=== PATIENT | male | born 1930 | race Caucasian/White ===

== ENCOUNTER → 2017-06-20 | Outpatient (CLI) | payer MEDICARE, OTHER ==
[~2017-06-20] MED LIST: FINASTERIDE5 MG PO; IOPAMIDOL 370 MG/ML 200 ML INFUS..BTL INJ ONE; SODIUM CHLORIDE 0.9% 50ML 50 ML ONE
[2017-06-20 11:05] LABS: CREATININE, SERUM 1.16 mg/dL (0.72-1.25)
--- NOTE | 2017-06-20 14:03 | Diagnostic Imaging Report ---
PROCEDURE:CT ABDOMEN AND PELVIS WITH CONTRAST COMPARISON:No relevant priors INDICATIONS:PROSTATE CANCER TECHNIQUE: Multidetector CT scanning of the abdomen and pelvis was performed after the administration of 100 cc of nonionic contrast. Coronal and sagittal reformations were obtained. Routine protocol performed. FINDINGS: Lung bases: Moderate-sized hiatal hernia. There is chronic atelectasis/scar in the lingula and to a lesser extent in the left lower lobe. Punctate calcified granulomata are present the lung bases. The heart is normal in size without calcifications. Liver: A low attenuating mass measures 1.4 x 1.2 cm in segment 4. A subtle low attenuating mass in segment 7/6 measures 1.7 x 1.3 cm. Biliary: The gallbladder is present and normal in appearance. No biliary ductal dilatation Spleen: Normal size and attenuation without mass Pancreas: Diffuse fatty atrophy without mass or ductal dilatation. Adrenal Glands: Thickening of the apex of the right adrenal gland measures 1.6 x 1.7 cm in the coronal plane. There is mild thickening of the apex of the left adrenal gland. Kidneys: Symmetric enhancement. No enhancing mass. Cyst in the lower pole of the left kidney measures 2.7 x 2.8 cm. No hydronephrosis. Gastrointestinal: Small bowel is normal in diameter and wall thickness. Mild to moderate burden of stool throughout the large bowel. A few diverticula are present. The cecum is located midline in the pelvis. The appendix is nonvisualized and may be absent or collapsed. Vasculature: The aorta is normal in diameter. 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 There is diffuse atherosclerotic plaque particularly at the origin of the left common iliac artery. Peritoneum/Retroperitoneum: No free fluid or fluid collection. Lymph nodes: No enlarged mesenteric, pelvic, or inguinal lymph nodes. Bladder: Under distended but otherwise normal.. Reproductive organs: The prostate gland is absent as are the seminal vesicles. No mass in the operative bed. Penile prosthesis reservoirs are in the lower anterior abdomen. Musculoskeletal: Diffuse sclerotic metastases. There is grade 1 retrolisthesis of L2 on L3 without pars defect. Flowing anterior osteophytes are consistent with DISH. No compression deformities or pathologic fractures. Soft tissues: Unremarkable. CONCLUSION: 1. Status post radical prostatectomy. Widespread osseous metastases. 2. Low attenuating hepatic lesions could represent metastases. It should be confirmed with CT or MRI dedicated to the liver. No lymphadenopathy to suggest metastasis. 3. Saccular aneurysm of the infrarenal aorta as described above. Diffuse atherosclerosis and mild 4. Stenosis of the left common iliac artery. 5. Moderate size hiatal hernia. 6. Nonspecific thickening of the right adrenal gland. Underlying metastases cannot be excluded. Dictated by: Mirza Hall M.D. on 06/20/2017 at 14:04 Electronically approved by: Mirza Hall M.D. on 06/20/2017 at 14:04
--- NOTE | 2017-06-20 23:01 | Diagnostic Imaging Report ---
Bone Scan, delayed phase INDICATION: Prostate cancer; rising PSA; restaging COMPARISON: Most recent prior bone scan of 08/12/2015 REPORT: Approximately 2.5 hours following intravenous administration of 29 mCi of Tc-99m MDP, delayed total body images in the anterior and posterior projections and selected spot images were obtained. Compared to the prior bone scan of 08/12/2015, there has been interval increased in the number of foci of increased tracer activity in the thoracolumbar spine, in ribs anteriorly and posteriorly, in the sternal body, in the bilateral scapulae and throughout the pelvis. Foci of increased tracer activity in the right humeral shaft are more apparent and a new focus of increased tracer activity is seen in the left intertrochanteric femur. Foci of increased tracer in the right femoral shaft show interval resolution. No abnormal accumulation of tracer is seen in the soft tissues or urinary tract. IMPRESSION: Progressive widespread metastatic bone disease in the spine, thorax, pelvis, right humeral shaft and proximal left femur when compared to the most recent prior bone scan of 08/12/2015. Metastatic foci seen in the right femoral shaft show interval resolution. Signed by: Dr. Renetta Kelly M.D. on 06/20/2017 10:58 PM
== END ==
LOC: NM 09:38
PROVIDERS: ATTEND Radiology Radiation Oncology
DX: C79.51 Secondary malignant neoplasm of bone (principal); R97.20 Elevated prostate specific antigen [PSA]
CPT/HCPCS: 36415; 74177; 78306; 82565; 84520; A9503; Q9967

== ENCOUNTER 2018-05-02 14:44 | Inpatient (IN) | payer MEDICARE, OTHER ==
[~2018-05-02] VITALS: Ht 172.7 cm; Wt 73.9 kg
[~2018-05-02 14:44] MED LIST changes: -IOPAMIDOL 370 MG/ML 200 ML INFUS..BTL INJ ONE; -SODIUM CHLORIDE 0.9% 50ML 50 ML ONE
--- OUTSIDE RECORDS SUMMARY | 2018-05-02 14:47 | XMS REPORT ---
Author Author [facility] Address Unknown Phone Unavailable Care Team Providers Care Vice President Compliance Name Role Phone Chapito SHIRLEY Unavailable Unavailable ADRYAN CASTANO Unavailable Unavailable LAURA HALL Unavailable Unavailable Payers Payer Name Policy Type Policy Number Effective Date Expiration Date Problems This patient has no known problems. Allergies, Adverse Reactions, Alerts Allergy Name Allergy Type Status Severity Reaction(s) Onset Date Inactive Date Treating Clinician Comments No Known Allergies DA Active U 2011-07-23 00:00:00 Medications This patient has no known medications. Results Test Description Test Time Test Comments Text Results Atomic Results Result Comments CT ABDOMEN/PELVIS [facility] [address] [place] [address] Patient Name: ALEXANDER ARMENDARIZ MR #: [id number] : 1930 Age/Sex: 86/M Req #: [id number] Adm Physician: Ordered by: CECILE SHIRLEY MD Report #: [id number] Location: [place] Room/Bed: Procedure: [id number] CT/CT ABDOMEN/PELVIS W Exam Date: 06/20/17 Exam Time: 1134 REPORT STATUS: Signed PROCEDURE: CT ABDOMEN AND PELVIS WITH CONTRAST COMPARISON: No relevant priors INDICATIONS: PROSTATE CANCER TECHNIQUE: Multidetector CT scanning of the abdomen and pelvis was performed after the administration of 100 cc of nonionic contrast. Coronal and sagittal reformations were obtained. Routine protocol performed. FINDINGS: Lung bases: Moderate-sized hiatal hernia. There is chronic atelectasis/scar in the lingula and to a lesser extent in the left lower lobe. Punctate calcified granulomata are present the lung bases. The heart is normal in size without calcifications. Liver: A low attenuating mass measures 1.4 x 1.2 cm in segment 4. A subtle low attenuating mass in segment 7/6 measures 1.7 x 1.3 cm. Biliary: The gallbladder is present and normal in appearance. No biliary ductal dilatation Spleen: Normal size and attenuation without mass Pancreas: Diffuse fatty atrophy without mass or ductal dilatation. Adrenal Glands: Thickening of the apex of the right adrenal gland measures 1.6 x 1.7 cm in the coronal plane. There is mild thickening of the apex of the left adrenal gland. Kidneys: Symmetric enhancement. No enhancing mass. Cyst in the lower pole of the left kidney measures 2.7 x 2.8 cm. No hydronephrosis. Gastrointestinal: Small bowel is normal in diameter and wall thickness. Mild to moderate burden of stool throughout the large bowel. A few diverticula are present. The cecum is located midline in the pelvis. The appendix is nonvisualized and may be absent or collapsed. Vasculature: The aorta is normal in diameter. 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 There is diffuse atherosclerotic plaque particularly at the origin of the left common iliac artery. Peritoneum/Retroperitoneum: No free fluid or fluid collection. Lymph nodes: No enlarged mesenteric, pelvic, or inguinal lymph nodes. Bladder: Under distended but otherwise normal.. Reproductive organs: The prostate gland is absent as are the seminal vesicles. No mass in the operative bed. Penile prosthesis reservoirs are in the lower anterior abdomen. Musculoskeletal: Diffuse sclerotic metastases. There is grade 1 retrolisthesis of L2 on L3 without pars defect. Flowing anterior osteophytes are consistent with DISH. No compression deformities or pathologic fractures. Soft tissues: Unremarkable. CONCLUSION: 1. Status post radical prostatectomy. Widespread osseous metastases. 2. Low attenuating hepatic lesions could represent metastases. It should be confirmed with CT or MRI dedicated to the liver. No lymphadenopathy to suggest metastasis. 3. Saccular aneurysm of the infrarenal aorta as described above. Diffuse atherosclerosis and mild 4. Stenosis of the left common iliac artery. 5. Moderate size hiatal hernia. 6. Nonspecific thickening of the right adrenal gland. Underlying metastases cannot be excluded. Dictated by: Corrina Hall M.D. on 06/20/2017 at 14:04 Electronically approved by: Corrina Hall M.D. on 06/20/2017 at 14:04 Dictated By: CORRINA HALL MD 03 Transcribed By: JORDAN on 06/20/17 140 COPY TO: CECILE SHIRLEY MD BONE and/or JOINT WHOLE BODY [place] [address] Patient Name: ALEXANDER ARMENDARIZ MR #: [id number] : 1930 Age/Sex: 86/M Req #: [id number] Adm Physician: Ordered by: CECILE SHIRLEY MD Report #: [id number] Location: [place] Room/Bed: Procedure: [id number] NM/BONE and/or JOINT WHOLE BODY Exam Date: 06/20/17 Exam Time: 1000 REPORT STATUS: Signed Bone Scan, delayed phase INDICATION: Prostate cancer; rising PSA; restaging COMPARISON: Most recent prior bone scan of 08/12/2015 REPORT: Approximately 2.5 hours following intravenous administration of 29 mCi of Tc-99m MDP, delayed total body images in the anterior and posterior projections and selected spot images were obtained. Compared to the prior bone scan of 08/12/2015, there has been interval increased in the number of foci of increased tracer activity in the thoracolumbar spine, in ribs anteriorly and posteriorly, in the sternal body, in the bilateral scapulae and throughout the pelvis. Foci of increased tracer activity in the right humeral shaft are more apparent and a new focus of increased tracer activity is seen in the left intertrochanteric femur. Foci of increased tracer in the right femoral shaft show interval resolution. No abnormal accumulation of tracer is seen in the soft tissues or urinary tract. IMPRESSION: Progressive widespread metastatic bone disease in the spine, thorax, pelvis, right humeral shaft and proximal left femur when compared to the most recent prior bone scan of 08/12/2015. Metastatic foci seen in the right femoral shaft show interval resolution. Signed by: Dr. Derrick Kelly M.D. on 06/20/2017 10:58 PM Dictated By: DERRICK KELLY MD 57 Transcribed By: KANDI on 06/20/172257 COPY TO: CECILE SHIRLEY MD CHEST 2 VIEWS [place] [address] Patient Name: ALEXANDER ARMENDARIZ MR #: [id number] : 1930 Age/Sex: 86/M Req #: [id number] Adm Physician: Ordered by: ADRYAN CASTANO MD Report #: [id number] Location: [facility] Room/Bed: Procedure: [id number] DX/CHEST 2 VIEWS Exam Date: 02/28/17 Exam Time: 1225 REPORT STATUS: Signed PROCEDURE: Frontal and lateral views of the chest. COMPARISON: [facility], CT, CTA CHEST, 01/26/2016, 18:58. [facility], DX, CHEST 2 VIEWS, 12/28/2016, 11:17. INDICATIONS: FOLLOW UP FOR PNEUMONIA FINDINGS: Lines/tubes: None. Lungs: The lungs are well-inflated. No significant interval change in linear scarring in the lingula adjacent to epicardial fat pad. The lungs are otherwise clear. No consolidation or pulmonary edema. Pleura: There is no pleural effusion or pneumothorax. Heart and mediastinum: The heart and the mediastinum are normal. Bones: No acute bony abnormality. IMPRESSION: 1. No acute cardiopulmonary abnormalities. 2. Stable linear scarring in the lingula adjacent to epicardial fat pad, as seen on CTA chest dated 01/26/2016 Joe Herzog M.D. Dictated by: Joe Herzog M.D. on 02/28/2017 at 13:18 Electronically approved by: Joe Herzog M.D. on 02/28/2017 at 13:18 Dictated By: JOE HERZOG MD 1318 Transcribed By: JORDAN on 02/28/17 1318 COPY TO: ADRYAN CASTANO MD CHEST 2 VIEWS [place] [address] Patient Name: ALEXANDER ARMENDARIZ MR #: [id number] : 1930 Age/Sex: 86/M Req #: [id number] Adm Physician: Ordered by: LAURA HALL MD Report #: [id number] Location: [facility] Room/Bed: Procedure: [id number] DX/CHEST 2 VIEWS Exam Date: 12/28/16 Exam Time: 1115 REPORT STATUS: Signed PROCEDURE: Frontal and lateral views of the chest. COMPARISON: CTA chest 01/26/2016. INDICATIONS: PROSTATE CANCER, METATASTIC LESIONS, WEAKNESS FINDINGS: Lines/tubes: None. Lungs: The lungs are well-inflated. New left basilar atelectasis and/or consolidation. Pleura: There is no pleural effusion or pneumothorax. Heart and mediastinum: The heart and the mediastinum are normal. Bones: No acute bony abnormality. Extensive diffuse idiopathic skeletal hyperostosis. IMPRESSION: Left basilar atelectasis and/or consolidation. Dictated by: Vimal Lopez M.D. on 12/28/2016 at 11:42 Electronically approved by: Vimal Lopez M.D. on 12/28/2016 at 11:42 Dictated By: VIMAL LOPEZ MD 1142 Transcribed By: JORDAN on 12/28/16 1142 COPY TO: LAURA HALL MD
--- OUTSIDE RECORDS SUMMARY | 2018-05-02 14:47 | XMS REPORT | Clinical Summary ---
Author Author [facility] Address Unknown Phone Unavailable Care Team Providers Care Access Control Specialist Name Role Phone Asked, No Pcp PCP Unavailable Allergies No Known Allergies Medications End Date Status Medication Sig Dispensed Refills Start Date Active aspirin (ECOTRIN) 81 MG Take 81 mg by 0 enteric coated tablet mouth. Active clopidogrel (PLAVIX) 75 0 mg tablet 8 Active enzalutamide (XTANDI) 40 Take 4 0 mg chemo capsule capsules by 8 mouth. Active ezetimibe (ZETIA) 10 mg 0 tablet 8 Active leuprolide, 6 month, Inject 45 mg 0 (ELIGARD) 45 mg (6 month) under the injection skin. Active metoprolol tartrate 0 (LOPRESSOR) 25 mg tablet 8 Active nitroglycerin (NITRODUR) Place 1 patch 0 0.2 mg/hr on the skin. 8 Active nitroglycerin (NITROSTAT) DIS 1 T UNT 3 0.4 MG SL tablet PRN 8 Active pravastatin (PRAVACHOL) 0 20 MG tablet 8 04/08/2018 traMADol (ULTRAM) 50 mg Take 1 tablet 30 tablet 0 tablet (50 mg total) 8 by mouth every 6 (six) hours as needed for moderate pain for up to 5 days. Active Problems No known active problems Encounters Care Team Description Date Type Specialty Monroe Weiner MD Post-traumatic osteoarthritis of left wrist (Primary Dx); Post-traumatic osteoarthritis of right knee 04/03/2018 Office Visit Orthopedic Surgery after 05/01/2017 Social History Date Tobacco Use Types Packs/Day Years Used Never Smoker Smokeless Tobacco: Never Used Alcohol Use Drinks/Week oz/Week Comments No Alcohol Habits Answer Date Recorded How often do you have a drink containing alcohol? Never 04/03/2018 How many drinks containing alcohol do you have on Not asked a typical day when you are drinking? How often do you have six or more drinks on one Not asked occasion? Sex Assigned at Date Recorded Not on file Industry Job Start Date Occupation Not on file Not on file Not on file Travel End Travel History Travel Start No recent travel history available. Last Filed Vital Signs Time Taken Vital Sign Reading - Blood Pressure - - Pulse - - Temperature - - Respiratory Rate - - Oxygen Saturation - - Inhaled Oxygen - Concentration 04/03/2018 9:16 AM SMELTER LINER Weight 73.5 kg (162 lb) 04/03/2018 9:16 AM SMELTER LINER Height 172.7 cm (5' 8") 04/03/2018 9:16 AM SMELTER LINER Body Mass Index 24.63 Plan of Treatment Health Maintenance Due Date Last Done Comments SHINGLES VACCINES (1 of 1980 2) PNEUMOCOCCAL 09/20/1995 POLYSACCHARIDE VACCINE AGE 65 AND OVER PNEUMOCOCCAL-13 09/20/1995 INFLUENZA VACCINE 11/21/2017 Procedures Comments Procedure Name Priority Date/Time Associated Diagnosis XR KNEE 3 VW RIGHT Routine 04/03/2018 Acute pain of right knee 9:31 AM SMELTER LINER XR HAND 3+ VW LEFT Routine 04/03/2018 Left wrist pain 9:31 AM SMELTER LINER [place] ARTHROCENTESIS Routine 04/03/2018 Post-traumatic ASPIR&/INJ INTERM JT/BURS 9:00 AM SMELTER LINER osteoarthritis of left W/O US wrist after 05/01/2017 Results * XR Knee 3 Vw Right (04/03/2018 9:31 AM SMELTER LINER) Narrative Performed At [facility] X-rays 3 views of the right knee shows no acute bony injury.Moderate arthritis is seen.Chondrocalcinosis noted in the menisci. 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 Performing Organization Address City[facility] Phone Number [facility] [address] [place] [address] * Medium Joint Arthrocentesis: wrist, L radiocarpal (04/03/2018 9:00 AM SMELTER LINER) Narrative Performed At Monroe Weiner MD 04/03/20185:06 PM Medium Joint Arthrocentesis: wrist, L radiocarpal Consent given by: patient Site marked: site marked Timeout: Immediately prior to procedure a time out was called to verify the correct patient, procedure, equipment, technical support director and site/side marked as required Supporting Documentation Indications: pain Procedure Details Preparation: Patient was prepped and draped in the usual sterile fashion Ultrasound guided: no Location: wrist - L radiocarpal Left side: Needle size: 22 G Approach (left): dorsal. Left wrist medications administered: 40 mg methylPREDNISolone acetate 40 mg/mL; 1 mL lidocaine 10 mg/mL (1 %) Patient tolerance: patient tolerated the procedure well with no immediate complications after 05/01/2017 Insurance Payer Benefit Subscriber ID Type Phone Address Plan / Group xxxxxxxxx FOR LIFE MEDICARE MEDICARE xxxxxxxxxxx Medicare [place], [place] PART A AND B Advance Directives Patient has advance care planning documents on file. For more information, maico hightower contact: Mo Pisano [address] [place] [address]
[2018-05-02] MEDS ORDERED: FUROSEMIDE INJ 10 MG/ML 4 ML VIAL IV ONE (15:30)
[2018-05-02] MEDS ORDERED: ASPIRIN 81 MG CHEW TAB PO ONE ×2 (15:30)
--- NOTE | 2018-05-02 16:14 | Diagnostic Imaging Report ---
Examination: Single AP view of the chest. COMPARISON: CTA chest 01/26/2016 INDICATION: Chest pain, shortness of breath IMPRESSION: Exam limited by rotation. 1. Lines and Tubes: None 2. Lungs are well-inflated. Airspace opacity in the right lower lung, which may represent pneumonia in the appropriate clinical setting. 3. Enlarged cardiac silhouette. Central pulmonary venous congestion and mild perihilar interstitial edema. 4. No acute bony abnormalities. Generalized osteopenia. Signed by: Dr. Joe Herzog M.D. on 05/02/2018 4:11 PM
[2018-05-02] MEDS ORDERED: CEFTRIAXONE SOD 1 GM/NS 50 ML 50 ML IV ONE (16:30)
[2018-05-02] MEDS ORDERED: AZITHROMYCIN 500MG/NS 250 ML 250 ML IV SCH ×2 (16:30)
--- NOTE | 2018-05-02 16:30 | NUR ---
ECHOVASCULAR PRESENT AT BEDSIDE AT THIS TIME
[2018-05-02 16:41] LABS: BASOPHILS # (AUTO) 0.1 (0.0-0.1); BASOPHILS % 0.5 % (0.0-1.0); EOSINOPHILS # (AUTO) 0.1 (0.0-0.4); EOSINOPHILS % 1.2 % (0.0-6.0); HEMATOCRIT 35.8 % (38.2-49.6); HEMOGLOBIN 11.5 g/dL (14.0-18.0); LYMPHOCYTES # (AUTO) 1.3 (1.0-3.2); LYMPHOCYTES % 12.7 % (18.0-39.1); MEAN CORPUSCULAR HEMOGLOBIN 29.3 pg (28-32); MEAN CORPUSCULAR HGB CONC 32.1 g/dL (31-35); MEAN CORPUSCULAR VOLUME 91.1 fL (81-99); MONOCYTES # (AUTO) 0.7 (0.2-0.8); MONOCYTES % 6.2 % (4.4-11.3); NEUTROPHILS # (AUTO) 8.2 (2.1-6.9); NEUTROPHILS % 78.2 % (38.7-80.0); PLATELET COUNT 377 x10e3/uL (140-360); RED BLOOD COUNT 3.93 x10e6/uL (4.3-5.7); RED CELL DISTRIBUTION WIDTH 14.3 % (11.7-14.4)
--- OUTSIDE RECORDS SUMMARY | 2018-05-02 16:46 | XMS REPORT | Clinical Summary ---
Author Author [facility] Address Unknown Phone Unavailable Care Team Providers Care Front Office Clerk Name Role Phone Asked, No Pcp PCP [...] Inhaled Oxygen - Concentration 04/03/2018 9:16 AM CHARTER BOAT CAPTAIN Weight 73.5 kg (162 lb) 04/03/2018 9:16 AM [employer]TER BOAT CAPTAIN Height 172.7 cm (5' 8") 04/03/2018 9:16 AM [employer] BOAT CAPTAIN Body Mass Index 24.63 Plan of Treatment Health Maintenance Due Date Last Done Comments SHINGLES VACCINES (1 of 1980 2) PNEUMOCOCCAL 09/20/1995 POLYSACCHARIDE VACCINE AGE 65 AND OVER PNEUMOCOCCAL-13 09/20/1995 INFLUENZA VACCINE 11/21/2017 Procedures Comments Procedure Name Priority Date/Time Associated Diagnosis XR KNEE 3 VW RIGHT Routine 04/03/2018 Acute pain of right knee 9:31 AM [employer]TAIN XR HAND 3+ VW LEFT Routine 04/03/2018 Left wrist pain 9:31 AM [employer]TER BOAT CAPTAIN [place] ARTHROCENTESIS Routine 04/03/2018 Post-traumatic ASPIR&/INJ INTERM JT/BURS 9:00 AM [employer] CAPTAIN osteoarthritis of left W/O US wrist after 05/01/2017 Results * XR Knee 3 Vw Right (04/03/2018 9:31 AM CHAR[employer] BOAT CAPTAIN) Narrative Performed At [facility] X-rays 3 views of the right knee shows no acute bony injury.Moderate arthritis is seen.Chondrocalcinosis noted in the menisci. 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 Performing Organization Address City/[facility] Phone Number [facility] [address] [place] [address] * Medium Joint Arthrocentesis: wrist, L radiocarpal (04/03/2018 9:00 AM [employer]TER BOAT CAPTAIN) Narrative Performed At Monroe Weiner MD 04/03/20185:06 PM Medium Joint Arthrocentesis: wrist, L radiocarpal Consent given by: patient Site marked: site marked Timeout: Immediately prior to procedure a time out was called to verify the correct patient, procedure, equipment, field support rep and site/side marked as required Supporting Documentation [...] more information, maico hightower contact: Mo Pisano [address] [place] [address]
[2018-05-02] MEDS: FUROSEMIDE INJ 10 MG/ML 4 ML VIAL IV SCH (17:00)
[2018-05-02 17:01] LABS: ALANINE AMINOTRANSFERASE 15 IU/L (0-55); ALBUMIN 2.9 g/dL (3.5-5.0); ALBUMIN/GLOBULIN RATIO 0.8 (0.8-2.0); ALKALINE PHOSPHATASE 171 IU/L (40-150); BLOOD UREA NITROGEN 25 mg/dL (7-26); BUN/CREATININE RATIO 24 (6-25); CALCIUM 9.4 mg/dL (8.4-10.2); CARBON DIOXIDE 24 mmol/L (22-29); CHLORIDE 100 mmol/L (98-107); CREATINE KINASE 77 IU/L (30-200); CREATININE, SERUM 1.04 mg/dL (0.72-1.25); EST GLOMERULAR FILTRATION RATE > 60 ML/MIN (60-); GLUCOSE 125 mg/dL (74-118); SODIUM 136 mmol/L (136-145)
--- NOTE | 2018-05-02 18:15 | NUR ---
REPORT GIVEN TO NOE CASTANON FOR CONTINUITY OF CARE. NO DISTRESS NOTED AND V/S/S AT DEPART.
--- NOTE | 2018-05-02 18:32 | History and Physical ---
The patient is being hospitalized with orthopnea. He also relates cough and very poor appetite. He has been ill for several days. He was seen in office yesterday and prescribed Lasix. His pharmacist yesterday told him not to take the Lasix, however. The patient relates his pharmacist was concerned that it could cause him to have to urinate frequently last night. History is significant for organic heart disease with advanced coronary artery disease. Echocardiogram at this time reveals low ejection fraction. Chest x-ray with airspace opacity in right lower lung, cardiomegaly, central pulmonary venous congestion, and mild perihilar interstitial edema. Osteopenia. The patient has a history of hyperlipoproteinemia and has been on a statin with Zetia. History has included widely metastatic carcinoma of the prostate with prior prostatectomy, although the tumor was not within the capsule at that time on the verbal reports. He has been under urological care. Patient denies headache or visual change. Sensorium is baseline per family. Denies chest pain. Denies vomiting, nausea or diarrhea. Loss of appetite as above. Denies dysuria or bleeding. He denies significant bone pain at this time, although he has had widely metastasized disease. No fever or chills. FAMILY HISTORY: Mother had cardiac aneurysm. Father with colon cancer. ALLERGIES: NO KNOWN DRUG ALLERGIES. SURGERIES: Prostatectomy, TURP prior, herniorrhaphy, rotator cuff, tonsils and adenoids, carpal tunnel. See also home med list, which has recently included nitroglycerin patch, sublingual nitroglycerin, aspirin, Plavix, Toprol 25 t.i.d., Pravachol and Zetia 20 and 10 mg respectively. PHYSICAL EXAMINATION GENERAL: The patient is sitting up and states while sitting up he is not severely short of breath. He relates again orthopnea. VITALS: Temperature is 97.4 oral, pulse 96 and regular, respiratory rate 20 and not labored sitting up, blood pressure 123/85, O2 sat 97%. O2 sat as an outpatient was similar. The patient declined hospitalization yesterday. HEENT: No icterus or pallor. Pupils round and reactive. Throat clear. Neck flexes. Carotids palpable. No palpable goiter. PULMONARY: Auscultation reveals reduced breath sounds. CARDIAC: Sounds S1 and S2 are distant. ABDOMEN: Soft. Bowel sounds normal. No palpable mass or megaly. EXTREMITIES: Reveal bilateral 1+ edema. Dampened pulses. Strength reduced but not focally. Sensation grossly intact. DTRs depressed. Chemistry here are not available. Natriuretic peptide yesterday in the office was 1945 with BUN 27 and creatinine 0.88. White count here 10,500, hemoglobin 11.5, and platelets 377,000. IMPRESSION 1. Orthopnea. 2. Congestive heart failure: Low ejection fraction on echocardiogram now. 3. History of severe coronary artery disease. 4. Hyperlipoproteinemia. 5. Widely metastatic carcinoma of the prostate. Current plans are to diurese as tolerated. The patient is initiated on intravenous antibiotics per ER. He had a pulmonary infiltrate questionably. See chest x-ray. To await chemistries today. Chemistries yesterday with a glucose of 140, BUN 27, creatinine 0.88, Natriuretic peptide 1945. He will be followed by his walnut dehydrator operator, sound person and urologist also. See also initial orders. Further treatment as needed. Further treatment pending database. Job#: [id number] DE
[2018-05-02 20:00] VITALS: BP 103/65
--- NOTE | 2018-05-02 20:30 | NUR ---
Patient received lying in a semi-romero position in bed. Family at bedside. Admission history and Initial physical assessment conducted. Patient is AAO x 3. Patient had no complaints of pain . No signs of respiratory distress. Patient oriented to room, call light and plan of care. Fall precautions maintained. Patient instructed to call for assistance when needed. Call light within reach.
[2018-05-02] MEDS: PRAVASTATIN 20 MG TAB PO SCH (20:37)
[2018-05-02 20:45] VITALS: BP 103/65
--- NOTE | 2018-05-02 21:09 | NUR ---
Dr. David here to see patient. New order received for "Rapid Flu" test.
--- NOTE | 2018-05-02 21:43 | Consultation ---
DATE OF CONSULTATION: May 02, 2018 PULMONARY CONSULTATION REASON FOR THE CONSULT: Shortness of breath. HISTORY OF PRESENT ILLNESS: Mr. Day is an 87-year-old male, who presented to the emergency room with cough, poor appetite and shortness of breath. He saw Dr. Ace in the office. He has been bringing up phlegm which is discolored sometimes. He denies any chest pain, nausea, vomiting, or diarrhea. He is also reporting increased leg swelling. REVIEW OF SYSTEMS GENERAL: Denies any fever or chills. HEAD: Denies any head trauma. ENT: Denies any ear ache. CVS: Denies any chest pain. RESPIRATORY: Shortness of breath. GI: Denies any nausea, vomiting. The rest of the review systems is negative except as in HPI. PAST MEDICAL HISTORY: Hypertension, metastatic cancer of prostate, history of cryoprostatectomy. 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 Denies any history of smoking or alcohol use. Family history is significant for father with colon cancer. SURGERIES: Prostatectomy, herniorrhaphy, rotator cuff injury repair. PHYSICAL EXAMINATION VITAL SIGNS: Temperature 98.0, pulse of 95, blood pressure 107/74, respiratory rate of 18, O2 sat 99%. HEENT: Head atraumatic, normocephalic. NECK: Supple. CHEST: Crackles bilaterally on the bases. HEART: S1, S2 audible. ABDOMEN: Soft, nontender and nondistended. EXTREMITIES: No clubbing, cyanosis. Bilateral pedal edema. NEUROLOGICAL: Awake and alert. LABS: White count of 10,000, hemoglobin 11.5, platelets 377,000. Chemistry: Sodium 136, potassium 4.0, chloride 100, BUN 25, creatinine 1.04. BNP 1985.5. Chest x-ray: I reviewed the images. The last one here is from 2017. Chest x-ray showing right lower lobe and middle lobe infiltrate. ASSESSMENT/PLAN: Mr. Day is a retired, 87-year-old male, who presented with a history of metastatic prostate cancer, presented with cough, bringing up green phlegm, weakness. Patient was seen by Dr. Ace. He also had poor appetite. Chest x-ray film reviewed and it is likely suggestive of right middle lobe, lower lobe infiltrate and possibility of multilobar infiltrate as well. In this context, it appears to be pneumonia versus fluid overload due to heart failure. Patient reports that he has a history of coronary artery disease. CURRENT PROBLEMS 1. Possible pneumonia. 2. Congestive heart failure. 3. Coronary artery disease. 4. Metastatic prostate cancer. PLAN 1. I will start the patient on IV Rocephin and azithromycin. He has gotten one dose in the emergency room. 2. Nebulizer treatment. 3. CT chest without contrast. 4. Patient has received 1 dose of diuretics in the emergency room. I will follow him closely. Dr. Daniel has been consulted. Will follow his recommendations. Thank you for this consult. Job#: [id number] [employer]
[2018-05-02 22:16] VITALS: BP 114/64
--- NOTE | 2018-05-03 00:30 | NUR ---
Blood specimen sent to lab for analysis of cardiac enzymes.
[2018-05-03] MEDS: LEVALBUTEROL HCL SOLN NEBU 1.25 MG/3 ML NEB INH SCH ×4 (01:00→20:30)
[2018-05-03 01:35] LABS: CREATINE KINASE MB 2.1 ng/mL (0-5.0)
[2018-05-03] MEDS ORDERED: METOPROLOL TART25 MG PO (02:24)
[2018-05-03] MEDS ORDERED: ROBITUSSIN-COU237 ML (02:24)
[2018-05-03] MEDS ORDERED: AZITHROMYCIN250 MG PO (02:24)
[2018-05-03] MEDS ORDERED: XTANDI (02:24)
[2018-05-03] MEDS ORDERED: NITROGLYCERIN1 EAC1 TD (02:24)
[2018-05-03] MEDS ORDERED: FUROSEMIDE10 MG/1 M1 IV (02:24)
[2018-05-03] MEDS ORDERED: NITROGLYCERIN0.4 MG SL (02:24)
[2018-05-03] MEDS ORDERED: PRAVACHOL20 MG (02:24)
[2018-05-03] MEDS ORDERED: PLAVIX75 MG PO (02:24)
[2018-05-03] MEDS ORDERED: ASPIRIN81 MG (02:24)
[2018-05-03] MEDS ORDERED: ZETIA10 MG PO (02:24)
[2018-05-03 02:40] VITALS: BP 114/64
[2018-05-03 04:00] VITALS: BP 107/60
[2018-05-03 05:37] LABS: BASOPHILS % 0.4 % (0.0-1.0); EOSINOPHILS # (AUTO) 0.2 (0.0-0.4); EOSINOPHILS % 2.1 % (0.0-6.0); HEMATOCRIT 33.8 % (38.2-49.6); LYMPHOCYTES # (AUTO) 1.4 (1.0-3.2); MEAN CORPUSCULAR HEMOGLOBIN 29.6 pg (28-32); MEAN CORPUSCULAR HGB CONC 32.5 g/dL (31-35); MEAN CORPUSCULAR VOLUME 91.1 fL (81-99); MONOCYTES # (AUTO) 0.8 (0.2-0.8); MONOCYTES % 8.3 % (4.4-11.3); NEUTROPHILS # (AUTO) 6.9 (2.1-6.9); NEUTROPHILS % 73.1 % (38.7-80.0); PLATELET COUNT 356 x10e3/uL (140-360); RED BLOOD COUNT 3.71 x10e6/uL (4.3-5.7); RED CELL DISTRIBUTION WIDTH 14.4 % (11.7-14.4)
--- NOTE | 2018-05-03 05:45 | NUR ---
Rapid Flu swab sent to lab for analysis.
[2018-05-03 06:03] LABS: CREATINE KINASE MB 1.8 ng/mL (0-5.0)
[2018-05-03 06:23] LABS: ANION GAP 16.2 mmol/L (8-16); BLOOD UREA NITROGEN 24 mg/dL (7-26); BUN/CREATININE RATIO 24 (6-25); CALCIUM 8.8 mg/dL (8.4-10.2); CARBON DIOXIDE 24 mmol/L (22-29); CHLORIDE 105 mmol/L (98-107); CREATININE, SERUM 1.02 mg/dL (0.72-1.25); EST GLOMERULAR FILTRATION RATE > 60 ML/MIN (60-); GLUCOSE 109 mg/dL (74-118); POTASSIUM 4.2 mmol/L (3.5-5.1); SODIUM 141 mmol/L (136-145)
--- NOTE | 2018-05-03 06:40 | Diagnostic Imaging Report ---
EXAM: CT CHEST WO DATE: 05/03/2018 8:59 PM INDICATION: Abnormal chest x-ray COMPARISON: 01/26/2016 TECHNIQUE: Multidetector CT scanning of the chest was performed. Coronal and sagittal multiplanar reformations were obtained. CT low dose techniques were utilized, as applicable. IV Contrast: 0 ml Isovue 370/300 FINDINGS: LUNGS AND PLEURA: There are small bilateral effusions. Interlobular septal thickening mild patchy bibasilar, right middle lobe and lingular opacity, new and/or increased from prior. Scattered nonspecific pulmonary nodules are noted for example 5 mm right upper lobe on image 31. HEART, MEDIASTINUM, VESSELS: Cardiomegaly without pericardial effusion. Coronary artery and aortic atherosclerotic disease. There are scattered prominent mediastinal nodes, new and/or increased from prior for example measuring 1 cm short axis on image 40, which may be reactive. Stable 1.7 cm right hilar node measured on prior. UPPER ABDOMEN: Ectasia of the infrarenal and suprarenal abdominal aorta, 2.6 cm. Large hiatal hernia. MUSCULOSKELETAL: Multifocal sclerotic lesions compatible with metastases. Thoracic kyphosis. IMPRESSION: 1. Cardiomegaly with edema and small effusions. 2. Patchy bilateral opacities likely a combination of atelectasis and pneumonia. 3. Multifocal osseous metastatic disease. Signed by: Dr Fartun Fletcher MD on 05/03/2018 6:37 AM
--- NOTE | 2018-05-03 07:20 | NUR ---
Patient resting comfortably. Shift report given to oncoming nurse.
[2018-05-03 08:30] VITALS: BP 114/69
[2018-05-03] MEDS ORDERED: NITROGLYCERIN 0.1MG/HR PATCH TOP SCH (09:00)
--- NOTE | 2018-05-03 09:10 | NUR ---
SOCIAL WORK INITIAL ASSESSMENT Intellectual Property Lawyer to bedside to discuss plan of care with patient/family. CM/SW role and care transitions discussed. Anticipated discharge plan discussed along with duration of care. CM/SW discussed patients right to make decisions in care. CM/SW work hours given. Patient lives: IN OWN HOUSE WITH JULIA [phone] Admit/Transfer: VIA ED FROM HOME POA/Emergency contact: SON POA [phone] GRANDDAUGHTER IS [phone] Current/Previous Home Health: NONE PCP/Follow-up Care: MARIBELL Current/Previous DME: STATES NONE Other Services: NONE Employment Status: NONE Areas of Concerns: NONE Referral Needs: NONE Education Needs: NONE IMM/PEACOCK given and signed (if applicable): PEACOCK Goal for discharge: RETURN HOME INDEPENDENTLY CM/SW left business card at the bedside with contact information. Name and number was also written on the patients whiteboard. Patient verbalized understanding of discussion. CM will follow-up with ongoing discharge and transition of care needs.
[2018-05-03 09:17] VITALS: BP 114/69
[2018-05-03] MEDS: CLOPIDOGREL BISULFATE 75 MG TAB PO SCH (09:28)
[2018-05-03] MEDS: EZETIMIBE 10 MG TAB PO SCH (09:28)
[2018-05-03] MEDS: AZITHROMYCIN 250 MG TAB PO SCH (09:28)
[2018-05-03] MEDS: FUROSEMIDE INJ 10 MG/ML 4 ML VIAL IV SCH ×2 (09:28→17:03)
[2018-05-03] MEDS: METOPROLOL SUCCINATE 25 MG TAB XL PO SCH ×2 (09:29→17:03)
[2018-05-03 12:00] VITALS: BP 93/54
--- NOTE | 2018-05-03 14:05 | NUR ---
Spoke with Dr. Ace. He states pt has severe CHF. will also need several days of IV abx, currently being treated for PNA. Gave inpatient order.
[2018-05-03 16:40] LABS: INR 0.96; PARTIAL THROMBOPLASTIN TIME 31.8 seconds (23.8-35.5); PROTHROMBIN TIME 13.7 seconds (11.9-14.5)
[2018-05-03] MEDS: CEFTRIAXONE SOD 1 GM/NS 50 ML 50 ML IV SCH (16:47)
[2018-05-03] MEDS ORDERED: NITROGLYCERIN 0.2 MG/HR PATCH TOP SCH (17:00)
[2018-05-03] MEDS ORDERED: NITROGLYCERIN 0.2 MG TD SCH (17:00)
[2018-05-03] MEDS ORDERED: SODIUM CHLORIDE 0.9% 250ML 250 ML ONE (17:01)
--- NOTE | 2018-05-03 19:29 | NUR ---
Report received and walking rounds complete. Pt resting in bed and in no apparent distress. Family visiting at bedside. All safety measures ensured.
[2018-05-03 20:00] VITALS: BP 100/59
[2018-05-03] MEDS: XTANDI 40 MG PO SCH (20:22)
[2018-05-03] MEDS: PRAVASTATIN 20 MG TAB PO SCH (21:00)
[2018-05-03] MEDS ORDERED: HEPARIN SOD (PORCINE) 5,000 UNIT/ML VIAL SC SCH (21:00)
[2018-05-03] MEDS ORDERED: PRAVASTATIN 20 MG TAB PO SCH (21:00)
--- NOTE | 2018-05-03 21:12 | NUR ---
Pt refused Heparin pt states he took Plavix earlier today and doesn't feel he needs to take another medication like it.
[2018-05-04] VITALS (7 sets, daily range): BP systolic 99–115; BP diastolic 55–73
--- NOTE | 2018-05-04 00:30 | NUR ---
Patient received asleep in bed. Aroused by tactile stimuli. No signs of pain, discomfort or respiratory distress. Call light within reach.
[2018-05-04] MEDS: LEVALBUTEROL HCL SOLN NEBU 1.25 MG/3 ML NEB INH SCH ×4 (01:00→19:45)
[2018-05-04 05:55] LABS: ANION GAP 15.6 mmol/L (8-16); BLOOD UREA NITROGEN 25 mg/dL (7-26); BUN/CREATININE RATIO 26 (6-25); CALCIUM 8.6 mg/dL (8.4-10.2); CARBON DIOXIDE 25 mmol/L (22-29); CHLORIDE 103 mmol/L (98-107); CREATININE, SERUM 0.95 mg/dL (0.72-1.25); EST GLOMERULAR FILTRATION RATE > 60 ML/MIN (60-); GLUCOSE 117 mg/dL (74-118); POTASSIUM 3.6 mmol/L (3.5-5.1); SODIUM 140 mmol/L (136-145)
[2018-05-04 09:04] LABS: % IRON SATURATION 14 % (15-50); IRON 44 ug/dL (65-175); TOTAL IRON BINDING CAPACITY 323 ug/dL (261-478); TRANSFERRIN 231 mg/dL (174-364)
[2018-05-04 09:42] LABS: FOLATE 7.8 ng/mL (7.0-15.4)
[2018-05-04] MEDS: XTANDI 40 MG PO SCH ×4 (09:55→20:36)
[2018-05-04] MEDS: CLOPIDOGREL BISULFATE 75 MG TAB PO SCH (09:55)
[2018-05-04] MEDS: FERROUS SULFATE 325 MG TAB PO SCH (09:55)
[2018-05-04] MEDS: AZITHROMYCIN 250 MG TAB PO SCH (09:55)
[2018-05-04] MEDS: METOPROLOL SUCCINATE 25 MG TAB XL PO SCH (09:55)
[2018-05-04] MEDS: EZETIMIBE 10 MG TAB PO SCH (09:55)
[2018-05-04] MEDS: FUROSEMIDE INJ 10 MG/ML 4 ML VIAL IV SCH (09:55)
[2018-05-04] MEDS ORDERED: DIGOXIN INJ 0.25 MG/ML 2 ML AMP IV NR (12:45)
--- NOTE | 2018-05-04 13:24 | Diagnostic Imaging Report ---
EXAMINATION: CHEST 2 VIEWS INDICATION: Abnormal CXR, dyspnea COMPARISON: CT chest 05/03/2018. FINDINGS: TUBES and LINES: None. LUNGS: Persistent patchy opacities at the bilateral lung bases, right greater than left, most confluent in the middle lobe. No evidence of pulmonary edema. PLEURA: No pleural effusion or pneumothorax. HEART AND MEDIASTINUM: The cardiomediastinal silhouette is unremarkable. There are atherosclerotic calcifications within the aorta. BONES AND SOFT TISSUES: Diffuse osseous metastatic disease is better characterized on CT from 05/03/2018. UPPER ABDOMEN: No free air under the diaphragm. IMPRESSION: Persistent patchy opacities at the bilateral lung bases, right greater than left, likely representing a combination of pneumonia and atelectasis. No evidence of pulmonary edema. Diffuse osseous metastatic disease is better characterized on CT from 05/03/2018. Signed by: Dr. Rosie Mane MD on 05/04/2018 1:21 PM
[2018-05-04] MEDS: SPIRONOLACTONE 25 MG TAB PO SCH (15:29)
--- NOTE | 2018-05-04 16:51 | Consultation ---
DATE OF CONSULTATION: May 03, 2018 HISTORY OF PRESENT ILLNESS: This 87-year-old patient presented to the emergency room because of progressive shortness of breath with physical exertion and also having shortness of breath with supine position particularly at night, having PNDs and orthopnea. The patient also stated that for quite a while, he had lost his appetite and he also noted some swelling around his ankles. The patient was started on Lasix. According to the information, the pharmacist told the patient not to take it because it may cause frequent urination. Patient is known to have severe coronary artery disease, had previous stenting of the right coronary artery and had no further angina pectoris and no additional intervention involving the severely diseased left coronary artery has been performed so far and even now the patient denies any chest pain or angina. 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 This had affected the right side of his body and also temporary speech impairment. At the moment, the patient is seen in upright position with nasal oxygen and is comfortable and denying any shortness of breath. Source is negative. ALLERGIES: THE PATIENT HAD SOME PROBLEM WITH STATINS IN THE PAST. PAST MEDICAL HISTORY: Reveals that he has metastatic prostate cancer and had previous prostate surgery and chemotherapy. Patient also had bilateral inguinal hernia repair and bilateral rotator cuff surgery, history of diabetes mellitus, ureteral sphincter stenosis, large hiatal hernia, pulmonary nodules, and has a previous TIA prior to his CVA. REVIEW OF SYSTEMS: Reveals the patient denies any sore throat. He has some cough which is somewhat productive, but he denies any hemoptysis. Patient denies any abdominal pain, nausea, vomiting, melena or hematemesis. He has some chronic iron deficiency anemia and has been on iron medication. PHYSICAL EXAMINATION VITAL SIGNS: Blood pressure 110/58, carotid pulses are present. CHEST: Reveals decreased breath sound particular on the right side, but there are no rales and no wheezes. CARDIOVASCULAR: Normal apical impulse. Rhythm is regular are normal. There is no S3. There is no rub. ABDOMEN: Soft. There is no tenderness or organomegaly. EXTREMITIES: Show a 2+ ankle edema more on the right side than on the left. Halley sign is negative. NEUROLOGIC: Does not reveal any motor defect, some weakness on the right side since his last CVA. IMPRESSION 1. Ischemic cardiomyopathy with congestive heart failure, systolic in nature. 2. Metastatic carcinoma of the prostate, rule out pneumonitis. 3. Diabetes mellitus. 4. Hyperlipidemia. 5. Hiatal hernia. 6. Pulmonary nodules rule out pulmonary metastases. RECOMMENDATION: Agree with the excellent management and the patient just had a CT of the chest performed, which I would like to review along with the ultrasound study, which kind of read by Dr. Ace for me to read including the echocardiogram and venous study of the lower extremity. Thank you very much for letting me to see this very nice patient. Job#: [id number] MAD[facility]
[2018-05-04] MEDS: CARVEDILOL 3.125 MG TAB PO SCH (17:00)
[2018-05-04] MEDS: CEFTRIAXONE SOD 1 GM/NS 50 ML 50 ML IV SCH (17:00)
[2018-05-04] MEDS: PRAVASTATIN 20 MG TAB PO SCH (20:37)
[2018-05-05] VITALS: BP 97/56
[2018-05-05] MEDS: LEVALBUTEROL HCL SOLN NEBU 1.25 MG/3 ML NEB INH SCH ×4 (02:05→19:40)
[2018-05-05 05:40] VITALS: BP 92/55
[2018-05-05 05:40] LABS: HEMATOCRIT 33.2 % (38.2-49.6); HEMOGLOBIN 10.6 g/dL (14.0-18.0)
[2018-05-05 06:02] LABS: ANION GAP 14.4 mmol/L (8-16); BLOOD UREA NITROGEN 24 mg/dL (7-26); BUN/CREATININE RATIO 23 (6-25); CALCIUM 8.8 mg/dL (8.4-10.2); CARBON DIOXIDE 28 mmol/L (22-29); CHLORIDE 102 mmol/L (98-107); CREATININE, SERUM 1.03 mg/dL (0.72-1.25); EST GLOMERULAR FILTRATION RATE > 60 ML/MIN (60-); GLUCOSE 113 mg/dL (74-118); POTASSIUM 4.4 mmol/L (3.5-5.1); SODIUM 140 mmol/L (136-145)
[2018-05-05 07:07] VITALS: BP 89/53
[2018-05-05 08:05] VITALS: BP 89/53
[2018-05-05] MEDS: XTANDI 40 MG PO SCH ×4 (08:43→20:59)
[2018-05-05] MEDS: FERROUS SULFATE 325 MG TAB PO SCH (08:44)
[2018-05-05] MEDS: CLOPIDOGREL BISULFATE 75 MG TAB PO SCH (08:44)
[2018-05-05] MEDS: AZITHROMYCIN 250 MG TAB PO SCH (08:44)
[2018-05-05] MEDS: CARVEDILOL 3.125 MG TAB PO SCH ×2 (09:00→17:24)
--- NOTE | 2018-05-05 11:10 | NUR ---
Patient ambulated in hallway without oxygen. O2 saturation was 96% after ambulation.
--- NOTE | 2018-05-05 14:10 | NUR ---
Dr. Daniel making rounds. New order for telemetry received. sales supervisor and charge nurse aware, pending Tele bed.
[2018-05-05] MEDS: SPIRONOLACTONE 25 MG TAB PO SCH (14:23)
[2018-05-05] MEDS ORDERED: ALBUMIN 25% 25GM 100ML 0.25 GM/ML BTL IV NR (14:30)
--- NOTE | 2018-05-05 15:53 | NUR ---
Patient moved to room 215 with all belongings and family at the side. Tele #[phone] placed
[2018-05-05] MEDS ORDERED: SODIUM CHLORIDE 0.9% 250ML 0 ML ONE (16:29)
[2018-05-05] MEDS: CEFTRIAXONE SOD 1 GM/NS 50 ML 50 ML IV SCH (17:24)
--- NOTE | 2018-05-05 19:20 | NUR ---
Received patient awake on bed, with family members at the bedside, with 02 support at 2L via nasal cannula, no complaints of pain at this time, not in distress. Call light within easy reached, advised to call for assistance when needed, bed in low position and locked. Will continue to monitor
--- NOTE | 2018-05-05 19:50 | NUR ---
Patient refused the bed alarm on, patient instructed about fall and safety precautions, will continue to monitor
--- NOTE | 2018-05-05 20:00 | NUR ---
patient has an order for EKG, patient refused tonight and prefers it to be done in the morning at 5AM. Laxmi RT informed. Patient verbalized that he never had chest pain. Will continue to monitor
[2018-05-05] MEDS: PRAVASTATIN 20 MG TAB PO SCH (20:58)
[2018-05-05 21:00] VITALS: BP 99/70
[2018-05-05 21:02] VITALS: BP 99/70
[2018-05-06] MEDS: LEVALBUTEROL HCL SOLN NEBU 1.25 MG/3 ML NEB INH SCH ×4 (00:08→19:00)
[2018-05-06 05:40] LABS: BASOPHILS # (AUTO) 0.1 (0.0-0.1); BASOPHILS % 0.7 % (0.0-1.0); EOSINOPHILS # (AUTO) 0.2 (0.0-0.4); EOSINOPHILS % 2.7 % (0.0-6.0); HEMATOCRIT 33.1 % (38.2-49.6); HEMOGLOBIN 10.6 g/dL (14.0-18.0); LYMPHOCYTES # (AUTO) 1.4 (1.0-3.2); MEAN CORPUSCULAR HEMOGLOBIN 29.4 pg (28-32); MEAN CORPUSCULAR VOLUME 91.9 fL (81-99); MONOCYTES # (AUTO) 0.8 (0.2-0.8); MONOCYTES % 8.5 % (4.4-11.3); NEUTROPHILS # (AUTO) 6.6 (2.1-6.9); NEUTROPHILS % 72.3 % (38.7-80.0); PLATELET COUNT 365 x10e3/uL (140-360); RED CELL DISTRIBUTION WIDTH 14.6 % (11.7-14.4)
[2018-05-06 06:06] LABS: ANION GAP 13.9 mmol/L (8-16); BLOOD UREA NITROGEN 28 mg/dL (7-26); BUN/CREATININE RATIO 31 (6-25); CARBON DIOXIDE 27 mmol/L (22-29); CHLORIDE 100 mmol/L (98-107); EST GLOMERULAR FILTRATION RATE > 60 ML/MIN (60-); GLUCOSE 116 mg/dL (74-118); POTASSIUM 3.9 mmol/L (3.5-5.1); SODIUM 137 mmol/L (136-145)
[2018-05-06 06:23] VITALS: BP 97/63
[2018-05-06 08:00] VITALS: BP 104/64
[2018-05-06 08:02] VITALS: BP 104/64
[2018-05-06] MEDS: CARVEDILOL 3.125 MG TAB PO SCH ×2 (08:48→17:00)
[2018-05-06] MEDS: SPIRONOLACTONE 25 MG TAB PO SCH (08:48)
[2018-05-06] MEDS: EZETIMIBE 10 MG TAB PO SCH (08:49)
[2018-05-06] MEDS: FERROUS SULFATE 325 MG TAB PO SCH (08:49)
[2018-05-06] MEDS: CLOPIDOGREL BISULFATE 75 MG TAB PO SCH (08:49)
[2018-05-06] MEDS: AZITHROMYCIN 250 MG TAB PO SCH (08:50)
[2018-05-06] MEDS: XTANDI 40 MG PO SCH ×4 (09:00→21:00)
[2018-05-06] MEDS ORDERED: HYDROXYZINE PAMOATE 25 MG CAP PO PRN (12:15)
[2018-05-06 12:31] VITALS: BP 100/66
[2018-05-06 13:42] LABS: CREATINE KINASE MB 1.3 ng/mL (0-5.0)
--- NOTE | 2018-05-06 14:51 | NUR ---
CASE MANAGEMENT INITIAL ASSESSMENT News Anchor to bedside to discuss plan of care with patient/family. CM/SW role and care transitions discussed. Anticipated discharge plan discussed along with duration of care. CM discussed patients right to make decisions in care. CM/SW work hours given. Patient lives: PATIENT LIVES IN [address] IN [place], [place] WITH JULIA ARMENDARIZ Admit/Transfer: ED POA/Emergency contact: JULIA ARMENDARIZ: [phone] Current/Previous Home Health: NONE PCP/Follow-up Care: DR. MALIK REYNA Current/Previous DME: ANTOINETTE Other Services: NONE Employment Status: RETIRED Areas of Concerns: OXYGEN SATURATION Referral Needs: POSSIBLE HOME O2 AND HOSPITAL BED REQUESTED BY FAMILY Education Needs: N/A IMM/PEACOCK given and signed (if applicable): NONE Goal for discharge: DISCHARGE HOME WITH HOSPITAL BED AND HOME O2. CM left business card at the bedside with contact information. Name and number was also written on the patients whiteboard. Patient verbalized understanding of discussion. CM will follow-up with ongoing discharge and transition of care needs.
--- NOTE | 2018-05-06 15:36 | NUR ---
Nutrition Screen Note RD Recommendation for Physician: -Continue cardiac diet as ordered -Consider Ensure Compact with each meal IF PO < 50% Plan of Care: RD following, monitoring for tolerance and adequacy Nutrition reason for involvement: Diagnosis Primary Diagnose(s): 1. Ischemic cardiomyopathy with congestive heart failure, systolic in nature. 2. Metastatic carcinoma of the prostate, rule out pneumonitis. PMH: CAD, prostate cancer, hypertension, CAD Ht: 68in Wt: 166.31lb BMI: 25.3kg/m2 IBW: 154lb RD Assessment: (05/06) Chart reviewed. Labs and meds reviewed. 87yo M, who is admitted for orthopnea, cough and poor appetite. CXR showed possible combination of pneumonia and atelectasis. Visited pt in the room. Pt reported eating and drinking well CAREER ADVISOR. No recent weight loss reported. Pt stated I had good appetite until this morning. I cant sleep last night. I think I had a panic attack. Pt appeared to be slightly anxious; RN is aware. Pt ate ~25% for lunch today; RN recorded 60-75% meal intake since admission. Pt denies any nausea, vomiting or abdominal pain. LBM 05/04. No complains of chewing or swallowing difficulty noted. Pt reports poor appetite is new today. If pt continues to have <25% meal intake, RD rec Ensure Compact with each meal. Will continue to monitor and follow. Current Diet: Cardiac diet Malnutrition Evaluation (05/06/2018) The patient does not meet criteria for a specified degree of malnutrition at this time. Will re-evaluate at follow-up as appropriate. Diet Education Needs Assessment: Diet education not indicated, pt is not appropriate at this time. Nutrition Care Level: low Signed: Jessica Douglas, MS, RD, LD
[2018-05-06] MEDS: FUROSEMIDE 20 MG TAB PO SCH ×3 (16:31→18:00)
[2018-05-06] MEDS ORDERED: SODIUM CHLORIDE 0.9% 250ML 250 ML ONE (16:48)
[2018-05-06] MEDS: CEFTRIAXONE SOD 1 GM/NS 50 ML 50 ML IV SCH (17:00)
[2018-05-06] MEDS ORDERED: PANTOPRAZOLE SOD 40 MG TABEC PO ONE (19:00)
--- NOTE | 2018-05-06 19:20 | NUR ---
Completed bedside rounds with morning nurse. Pt alert to name, sitting in wheelchair. Family at bedside. No distress noted.
[2018-05-06] MEDS: OXAZEPAM 10 MG CAP PO PRN (20:10)
[2018-05-06 20:42] VITALS: BP 92/65
[2018-05-06 20:55] VITALS: BP 92/65
[2018-05-06] MEDS: PRAVASTATIN 20 MG TAB PO SCH (21:48)
[2018-05-07] MEDS: LEVALBUTEROL HCL SOLN NEBU 1.25 MG/3 ML NEB INH SCH ×5 (01:00→23:40)
[2018-05-07] MEDS: FUROSEMIDE 20 MG TAB PO SCH ×3 (06:51→23:00)
[2018-05-07 08:00] VITALS: BP 95/58
[2018-05-07] MEDS: XTANDI 40 MG PO SCH ×4 (09:00→21:00)
[2018-05-07 09:39] VITALS: BP 95/58
[2018-05-07] MEDS: CARVEDILOL 3.125 MG TAB PO SCH ×2 (10:45→18:05)
[2018-05-07] MEDS: CLOPIDOGREL BISULFATE 75 MG TAB PO SCH (10:45)
[2018-05-07] MEDS: SPIRONOLACTONE 25 MG TAB PO SCH (10:45)
[2018-05-07] MEDS: EZETIMIBE 10 MG TAB PO SCH (10:45)
[2018-05-07] MEDS: PANTOPRAZOLE SOD 40 MG TABEC PO SCH (10:45)
[2018-05-07] MEDS: AZITHROMYCIN 250 MG TAB PO SCH (10:45)
--- NOTE | 2018-05-07 12:15 | Diagnostic Imaging Report ---
EXAM: Complete Abdominal Ultrasound INDICATION: Nausea. Abdominal pain. Congestive heart failure. ^NAUSEA ^[id number] ^1018 ^Y COMPARISON: None. TECHNIQUE: Transverse and longitudinal images of the upper abdomen were obtained. FINDINGS: Liver: Size: 17.0 cm in the right midclavicular line, normal Appearance: Normal echogenicity, smooth contour Mass: No focal masses Spleen: Size: 9.5 cm in length, normal Echogenicity: Normal Mass: No focal masses Gallbladder: Stones/Sludge: None Wall: 0.2 cm Appearance: No wall thickening, pericholecystic fluid or hydrops. Sonographic Figueroa's Sign: Negative Bile Ducts: Intrahepatic Ducts: No dilatation Extrahepatic Ducts: Common bile duct measures 0.4 cm, no dilatation Pancreas: Visualized portions of the pancreatic head, neck and proximal body are normal. Kidneys: Length: Right 10.6 cm Left 10.1 cm Echogenicity: Normal Collecting System: No hydronephrosis Stone: None Cyst/Mass: 2.7 x 2.6 x 2.8 cm cyst in the lower pole of the left kidney Vessels: Aorta: Visualized portions are normal Inferior Vena Cava: Visualized portions are normal Main Portal Vein: 1.3 cm, normal size with hepatopetal flow. Free Fluid: No ascites or pleural effusion IMPRESSION: 2.7 x 2.6 x 2.8 cm cyst in the lower pole of the left kidney Signed by: Dr. Jonathan Osorio M.D. on 05/07/2018 12:12 PM
[2018-05-07 12:20] VITALS: BP 115/59
[2018-05-07 16:00] VITALS: BP 109/67
[2018-05-07] MEDS: CEFTRIAXONE SOD 1 GM/NS 50 ML 50 ML IV SCH (18:05)
[2018-05-07 20:00] VITALS: BP 93/57
[2018-05-07] MEDS: OXAZEPAM 10 MG CAP PO PRN (20:12)
[2018-05-07] MEDS: PRAVASTATIN 20 MG TAB PO SCH (20:12)
[2018-05-07 20:55] VITALS: BP 93/57
[2018-05-08] VITALS (7 sets, daily range): BP systolic 91–102; BP diastolic 50–58
[2018-05-08 05:33] LABS: BASOPHILS # (AUTO) 0.1 (0.0-0.1); BASOPHILS % 0.7 % (0.0-1.0); EOSINOPHILS # (AUTO) 0.2 (0.0-0.4); EOSINOPHILS % 2.9 % (0.0-6.0); HEMATOCRIT 32.3 % (38.2-49.6); HEMOGLOBIN 10.2 g/dL (14.0-18.0); LYMPHOCYTES # (AUTO) 1.2 (1.0-3.2); LYMPHOCYTES % 17.4 % (18.0-39.1); MEAN CORPUSCULAR HEMOGLOBIN 29.1 pg (28-32); MEAN CORPUSCULAR HGB CONC 31.6 g/dL (31-35); MEAN CORPUSCULAR VOLUME 92.3 fL (81-99); MONOCYTES # (AUTO) 0.8 (0.2-0.8); MONOCYTES % 11.6 % (4.4-11.3); NEUTROPHILS # (AUTO) 4.6 (2.1-6.9); NEUTROPHILS % 66.8 % (38.7-80.0); PLATELET COUNT 346 x10e3/uL (140-360); RED CELL DISTRIBUTION WIDTH 14.8 % (11.7-14.4)
[2018-05-08 05:50] LABS: ANION GAP 12.8 mmol/L (8-16); BLOOD UREA NITROGEN 37 mg/dL (7-26); BUN/CREATININE RATIO 37 (6-25); CALCIUM 7.9 mg/dL (8.4-10.2); CARBON DIOXIDE 27 mmol/L (22-29); CHLORIDE 100 mmol/L (98-107); EST GLOMERULAR FILTRATION RATE > 60 ML/MIN (60-); GLUCOSE 107 mg/dL (74-118); POTASSIUM 3.8 mmol/L (3.5-5.1); SODIUM 136 mmol/L (136-145)
[2018-05-08] MEDS: FUROSEMIDE 20 MG TAB PO SCH ×3 (06:17→21:58)
[2018-05-08] MEDS: LEVALBUTEROL HCL SOLN NEBU 1.25 MG/3 ML NEB INH SCH ×3 (06:36→19:09)
--- NOTE | 2018-05-08 09:13 | Diagnostic Imaging Report ---
EXAMINATION: CHEST 2 VIEWS INDICATION: Congestive heart failure. COMPARISON: May 04, 2018 FINDINGS: TUBES and LINES: None. LUNGS: Persistent patchy opacities at the bilateral lung bases, right greater than left, most confluent in the middle lobe. No evidence of pulmonary edema. PLEURA: Possible small right pleural effusion. No pneumothorax HEART AND MEDIASTINUM: The cardiomediastinal silhouette is unremarkable. There are atherosclerotic calcifications within the aorta. BONES AND SOFT TISSUES: Diffuse osseous metastatic disease is better characterized on CT from 05/03/2018. UPPER ABDOMEN: No free air under the diaphragm. IMPRESSION: Persistent patchy opacities at the bilateral lung bases, right greater than left, likely representing a combination of pneumonia and atelectasis. Possible small right pleural effusion. No evidence of pulmonary edema. Diffuse osseous metastatic disease is better characterized on CT from 05/03/2018. Signed by: Dr. Jonathan Osorio M.D. on 05/08/2018 9:09 AM
[2018-05-08] MEDS: CARVEDILOL 3.125 MG TAB PO SCH ×2 (09:23→16:50)
[2018-05-08] MEDS: SPIRONOLACTONE 25 MG TAB PO SCH (09:23)
[2018-05-08] MEDS: PANTOPRAZOLE SOD 40 MG TABEC PO SCH (09:23)
[2018-05-08] MEDS: EZETIMIBE 10 MG TAB PO SCH (09:23)
[2018-05-08] MEDS: CLOPIDOGREL BISULFATE 75 MG TAB PO SCH (09:23)
[2018-05-08] MEDS: AZITHROMYCIN 250 MG TAB PO SCH (09:23)
[2018-05-08] MEDS: XTANDI 40 MG PO SCH ×3 (09:23→21:00)
--- NOTE | 2018-05-08 14:54 | NUR ---
CM SPOKE WITH PATIENT AND PATIENT FAMILY AT BEDSIDE. PATIENT, PATIENT AND PATIENT DAUGHTERS INFORMED REGARDING HOME O2 ORDER. PATIENT, PATIENT AND FAMILY VERBALLY AGREE TO GET HOME O2. PATIENT AND PATIENT FAMILY CHOSE [facility]. CHOICE LETTER SIGNED AND PLACED IN CHART. CLINICAL SENT TO [facility] @ [phone]. DAYNA KEENAN FOR [facility] NOTIFIED. PENDING APPROVAL BY MEDICARE AND DELIVERY TO BEDSIDE PRIOR TO DISCHARGE. PATIENT GOING HOME WITH HOME OXYGEN FROM: [facility] Address: [address], [place] [address] LIAISON REE PHONE: [phone] FAX: [phone]
[2018-05-08] MEDS: CEFTRIAXONE SOD 1 GM/NS 50 ML 50 ML IV SCH (16:50)
[2018-05-08] MEDS: OXAZEPAM 10 MG CAP PO PRN (21:45)
[2018-05-08] MEDS: PRAVASTATIN 20 MG TAB PO SCH (21:45)
[2018-05-09] VITALS: BP 84/50
[2018-05-09] MEDS: LEVALBUTEROL HCL SOLN NEBU 1.25 MG/3 ML NEB INH SCH ×3 (01:00→14:55)
--- NOTE | 2018-05-09 01:03 | Progress Note ---
DATE: May 08, 2018 SUBJECTIVE: The patient requires home O2. DIAGNOSES: Include: 1. Congestive heart failure, chronic left ventricular systolic. 2. Metastatic prostate cancer. PLAN: He needs long-term O2. He is hypoxic off of O2. His O2 levels are stable on O2. Job#: [id number]
[2018-05-09 04:00] VITALS: BP 98/55
[2018-05-09] MEDS: FUROSEMIDE 20 MG TAB PO SCH ×2 (06:27→14:01)
[2018-05-09 07:49] VITALS: BP 92/55
[2018-05-09] MEDS: CLOPIDOGREL BISULFATE 75 MG TAB PO SCH (09:45)
[2018-05-09] MEDS: EZETIMIBE 10 MG TAB PO SCH (09:45)
[2018-05-09] MEDS: AZITHROMYCIN 250 MG TAB PO SCH (09:45)
[2018-05-09] MEDS: PANTOPRAZOLE SOD 40 MG TABEC PO SCH (09:45)
[2018-05-09] MEDS: CARVEDILOL 3.125 MG TAB PO SCH (09:45)
[2018-05-09] MEDS: XTANDI 40 MG PO SCH ×2 (09:45→13:00)
[2018-05-09] MEDS: SPIRONOLACTONE 25 MG TAB PO SCH (09:45)
[2018-05-09 09:59] VITALS: BP 92/55
--- NOTE | 2018-05-09 10:17 | NUR ---
ROSETTE SPOKE WITH REE WITH [employer]. PATIENT APPROVED AND TANKS WERE DELIVERED TO BEDSIDE YESTERDAY. PATIENT NEEDS TO BE CLEARED BY CARDIOLOGY TO DISCHARGE. PATIENT TO DISCHARGE HOME WITH HOME OXYGEN FROM: [employer] (P)[phone] (F)[phone] PATIENT AND PATIENT FAMILY VERBALLY UNDERSTOOD TEACHING AND PREPARED FOR DISCHARGE. NO FURTHER QUESTIONS BY PATIENT AND PATIENT FAMILY AT THIS TIME.
[2018-05-09 11:24] LABS: HEMATOCRIT 35.1 % (38.2-49.6); HEMOGLOBIN 11.2 g/dL (14.0-18.0)
[2018-05-09 11:52] VITALS: BP 120/70
[2018-05-09 15:56] VITALS: BP 95/58
[2018-05-09] MEDS: CEFTRIAXONE SOD 1 GM/NS 50 ML 50 ML IV SCH (16:00)
== END 2018-05-09 16:40 | disposition home or self-care (01) | DRG 291 ==
LOC: ER 14:44 → ERHOLD 16:43 → IMCU 18:27 → OBSVTOIN 05-03 14:07 → MED/SURG2 05-05 15:58
PROVIDERS: ADMIT Internal Medicine; ATTEND Internal Medicine
DX: I11.0 Hypertensive heart disease with heart failure (principal); J15.9 Unspecified bacterial pneumonia; I69.351 Hemiplegia and hemiparesis following cerebral infarction affecting right dominant side; C78.01 Secondary malignant neoplasm of right lung; C79.51 Secondary malignant neoplasm of bone; I50.23 Acute on chronic systolic (congestive) heart failure; R06.01 Orthopnea; E78.5 Hyperlipidemia, unspecified; I25.10 Atherosclerotic heart disease of native coronary artery without angina pectoris; Z80.0 Family history of malignant neoplasm of digestive organs; Z95.5 Presence of coronary angioplasty implant and graft; K44.9 Diaphragmatic hernia without obstruction or gangrene; R91.8 Other nonspecific abnormal finding of lung field; C61 Malignant neoplasm of prostate; D64.9 Anemia, unspecified; N28.1 Cyst of kidney, acquired; Z19.2 Hormone resistant malignancy status; E61.1 Iron deficiency
CPT/HCPCS: 36415; 71045; 71046; 71250; 76700; 80048; 80053; 82550; 82553; 82607; 82746; 83090; 83540; 83880; 83921; 84466; 84484; 85014; 85018; 85025; 85379; 85610; 85730; 87040; 87070; 87205; 87400; 93005; 93306; 93970; 94640; 97139; 99284; G0378; J0696; J1940; J7050; P9047; Q0177

== ENCOUNTER → 2018-06-24 | Outpatient (CLI) | payer MEDICARE, OTHER ==
[~2018-06-24] MED LIST changes: +ASPIRIN81 MG; +AZITHROMYCIN250 MG PO; +FUROSEMIDE10 MG/1 M1 IV; +METOPROLOL TART25 MG PO; +NITROGLYCERIN0.4 MG SL; +NITROGLYCERIN1 EAC1 TD; +PLAVIX75 MG PO; +PRAVACHOL20 MG; +ROBITUSSIN-COU237 ML; +XTANDI; +ZETIA10 MG PO
--- NOTE | 2018-06-24 14:38 | Diagnostic Imaging Report ---
EXAM: CT Chest WITHOUT contrast 06/24/2018 10:53 AM INDICATION: Follow-up scars COMPARISON: Chest x-ray, 05/08/2018; chest CT, 05/03/2018 TECHNIQUE: Chest was scanned utilizing a multidetector helical scanner from the lung apex through the level of the adrenal glands without administration of IV contrast. Supine and prone, inspiration and expiration scanning was performed. Absence of intravenous contrast decreases sensitivity for detection of lymphadenopathy and vascular pathology. Coronal and sagittal reformations were obtained. High resolution CT protocol was performed. Dose modulation, iterative reconstruction, and/or weight based adjustment of the mA/kV was utilized to reduce the radiation dose to as low as reasonably achievable. IV CONTRAST: None RADIATION DOSE: Total DLP: 1386.68 mGy*cm Estimated effective dose: (DLP x 0.014 x size factor) mSv COMPLICATIONS: None FINDINGS: LINES/ TUBES: None. LUNGS AND AIRWAYS: There is mild centrilobular emphysema with bilateral perihilar bronchial wall thickening. 5 mm nodule in the right upper lobe (series 2, image 18) is stable. Small calcified granulomata are seen in the left upper lobe and left lower lobe. Stable scarring or atelectasis in the lingula and right middle lobe. No focal areas of air trapping. There is atelectasis in the right lower lobe associated with small right pleural effusion. Trachea and main bronchi are clear. PLEURA: Small right and trace left pleural effusion which are free flowing as demonstrated on prone imaging. HEART AND MEDIASTINUM: The thyroid gland is normal. There are scattered mediastinal nodes measuring up to 8 mm precarinal, stable from previous exam. The heart is normal in size.. Small pericardial effusion measuring 8 mm thickness to the right of midline. The thoracic aorta is atherosclerotic, with ectasia of the ascending aorta measuring 3.8 cm. Main pulmonary artery measures 3.3 cm. Extensive coronary artery calcifications are seen. UPPER ABDOMEN: Included portions of the unenhanced liver, spleen, adrenals, pancreas and upper pole kidneys show no focal abnormalities. There is a moderate hiatus hernia seen. BONES: Sclerotic lesions are seen throughout the skeleton, likely metastatic, similar to last exam. SOFT TISSUES: Superficial surrounding soft tissue unremarkable. IMPRESSION: 1. Small pleural effusion on the right with right lower lobe atelectasis, and trace pleural effusion on the left. These effusions are free-flowing on the prone imaging. Small pericardial effusion is developed since last exam. 2. Scarring or atelectasis stable in the right middle lobe and lingula. No consolidative pneumonia. 3. Emphysematous changes in the lungs with bilateral perihilar bronchial wall thickening suggesting chronic bronchitis. No focal areas of air trapping. 4. Small right upper lobe nodule is stable. No new pulmonary nodules. Scattered mildly prominent nodes in the mediastinum are stable. 5. Dilatation main pulmonary artery which may be seen with pulmonary hypertension. 6. Sclerotic skeletal lesions compatible with metastases appear stable. Signed by: Dr. Kalin Ashley M.D. on 06/24/2018 2:35 PM
== END ==
LOC: CT 10:40
PROVIDERS: ATTEND Internal Medicine Pulmonary Disease
DX: Z09 Encounter for follow-up examination after completed treatment for conditions other than malignant neoplasm (principal); J98.4 Other disorders of lung
CPT/HCPCS: 71250